=== PATIENT | male | born 1975 | race Two or more races ===

== ENCOUNTER 2017-01-10 00:12 | Emergency (ER) | payer MEDICAID ==
[~2017-01-10] VITALS: Ht 180.3 cm; Wt 104.3 kg
[2017-01-10] MEDS ORDERED: OXYMETAZOLINE HCL 0.05 % NASAL SPRAY 15ML ONE (00:45)
[2017-01-10 02:30] VITALS: BP 142/84
== END 2017-01-10 03:47 | disposition home or self-care (01) ==
LOC: ER 00:15
DX: R04.0 Epistaxis (principal); R51 Headache

== ENCOUNTER 2022-01-14 17:18 | Emergency (ER) | payer MEDICAID, OTHER ==
[~2022-01-14] VITALS: Ht 177.8 cm; Wt 93.0 kg
[2022-01-14] MEDS ORDERED: KETOROLAC TROMETH 60MG/2ML VIAL IM ONE (18:30)
[2022-01-14 21:16] VITALS: BP 143/89
== END 2022-01-14 21:24 | disposition home or self-care (01) ==
LOC: ER 17:18 → EDBD 17:18 → ER 21:24
DX: M54.6 Pain in thoracic spine (principal); R51.9 Headache, unspecified; M54.2 Cervicalgia; M79.602 Pain in left arm; M25.562 Pain in left knee; V43.52XA Car driver injured in collision with other type car in traffic accident, initial encounter; Y93.89 Activity, other specified; Y92.410 Unspecified street and highway as the place of occurrence of the external cause; Y99.8 Other external cause status
CPT/HCPCS: 71045; 71120; 72040; 72070; 72125; 72128; 72170; 73030; 73060; 73562; 96372; 99284; J1885